=== PATIENT | female | born 1980 | race American Indian/Alaskan Native ===

== ENCOUNTER 2016-06-23 08:25 | Emergency (ER) | payer SELFPAY ==
[2016-06-23 09:19] VITALS: BP 129/89
--- NOTE | 2016-06-23 10:00 | XRay Report ---
RIGHT ANKLE RADIOGRAPHS INDICATION: Right ankle injury, pain, swelling. COMPARISON: None similar. FINDINGS: AP, lateral and oblique right ankle radiographs demonstrate an oblique nondisplaced distal fibular shaft fracture, approximately 6 cm proximal to the lateral malleolus. Overlying soft tissue swelling noted extending to the ankle and foot, lateral more than medial. Intact ankle mortise, malleoli and talar dome contour. However, calcaneus appears heterogeneous with vague lucencies and suspected cortical interruptions superiorly and distally. Subtalar joints also not adequately assessed. CONCLUSION: 1. Nondisplaced distal fibular shaft fracture noted. 2. Heterogeneous calcaneus, suspected fractured. Moderate soft tissue swelling about the ankle also noted. Please also correlate clinically and further with CT, as warranted. Thank you for the opportunity to participate in this patient's care.
[2016-06-23] MEDS ORDERED: NORCO 7.5/325 PO ONE (11:58)
--- NOTE | 2016-06-23 12:15 | Emergency Department Report ---
ED Fall HPI - General Chief Complaint: Extremity Injury, Lower Stated Complaint: RT ANKLE SWOLLEN Time Seen by Provider: 06/23/16 11:39 Source: patient Mode of arrival: Wheelchair - History of Present Illness Initial Comments: pt c/o falling down 2 flights of stairs apprx 3 weeks ago and has severe rt foot and ankle pain ever since. pt denies any other injury , denies back pain, saddle paresthesia, bowel or bladder irregularities . Does states that she has been trying to walk for that on foot for the past 3 weeks. MD Complaint: fall -: week(s) (3) Fall From: down stairs (#) (20) Place Fall Occurred: home Loss of Consciousness: none Prolonged Down Time?: yes Symptoms Prior to Fall: none Location - Extremities: Right: Ankle, Foot Severity scale (0 -10): 9 Quality: aching Context: tripped/slipped Associated Symptoms: denies - Related Data Previous Rx's Medication Instructions Recorded Last Taken Type Oxycodone HCl/Acetaminophen 1 each PO Q6HR PRN #15 tablet 06/23/16 Unknown Rx [Percocet 7.5/325 mg] Sulfamethoxazole/Trimethoprim 1 each PO BID #20 tablet 06/23/16 Unknown Rx [Bactrim DS TAB] Allergies Allergy/AdvReac Type Severity Reaction Status Date / Time No Known Allergies Allergy Verified 06/23/16 09:20 ED Review of Systems ROS: Stated complaint: RT ANKLE SWOLLEN Other details as noted in HPI Constitutional: denies: chills, fever Eyes: denies: eye pain, eye discharge, vision change ENT: denies: ear pain, throat pain Respiratory: denies: cough, shortness of breath, wheezing Cardiovascular: denies: chest pain, palpitations, dyspnea on exertion, orthopnea , edema, syncope Endocrine: no symptoms reported Gastrointestinal: denies: abdominal pain, nausea, diarrhea Genitourinary: other (denies ). denies: urgency, dysuria, discharge Musculoskeletal: joint swelling, arthralgia. denies: back pain Skin: denies: rash, lesions Neurological: denies: headache, weakness, paresthesias Other: pt also making coincidental c/o recurrent abscesses to rt axilla. pt states álvaro she has 1 now that started spontaneously draining today. ED Past Medical Hx - Past Medical History Previous Medical History?: No - Surgical History Past Surgical History?: No - Social History Smoking Status: Current Every Day Smoker Substance Use Type: Alcohol - Medications Home Medications: Home Medications Medication Instructions Recorded Confirmed Last Taken Type Oxycodone HCl/Acetaminophen 1 each PO Q6HR PRN #15 tablet 06/23/16 Unknown Rx [Percocet 7.5/325 mg] Sulfamethoxazole/Trimethoprim 1 each PO BID #20 tablet 06/23/16 Unknown Rx [Bactrim DS TAB] ED Physical Exam - General Limitations: Physical Limitation General appearance: alert, in no apparent distress - Head Head exam: Present: atraumatic, normocephalic - Eye Eye exam: Present: normal appearance, PERRL, EOMI - ENT ENT exam: Present: normal exam - Neck Neck exam: Present: normal inspection, full ROM. Absent: tenderness - Respiratory Respiratory exam: Absent: respiratory distress - Cardiovascular Cardiovascular Exam: Present: regular rate - Expanded Lower Extremity Exam Right Ankle exam: Present: tenderness, swelling. Absent: full ROM Foot/Toe exam: Present: tenderness, swelling. Absent: full ROM Neuro vascular tendon exam: Present: no vascular compromise, significant pain with passive ROM of distal joint. Absent: pulse deficit, abnormal cap refill Gait: Positive: unable to bear weight - Back Exam Back exam: Present: normal inspection, full ROM. Absent: tenderness, CVA tenderness (R), CVA tenderness (L), vertebral tenderness - Neurological Exam Neurological exam: Present: alert, oriented X3, CN II-XII intact - Psychiatric Psychiatric exam: Present: normal affect - Skin Skin exam: Present: warm, dry, erythema (rt axilla with draining hidradenitis suppurativa) ED Course Vital Signs 06/23/16 06/23/16 06/23/16 09:16 12:19 13:05 Temperature 97.8 F Pulse Rate 86 Respiratory 20 20 22 Rate Blood Pressure 129/89 O2 Sat by Pulse 100 Oximetry - Reevaluation(s) Reevaluation #1: 06/23/16 12:45 Discussed case with was advised he would see patient in his office and the week advised the patient isn't well padded posterior OCL with crutches and no weightbearing until follow-up. - Orthopedic Splinting/Casting Injury #1 Side: right Lower Extremity Injury Location: lower leg, ankle, foot Lower Extremity Immobilizer: posterior splint, stirrup splint Other Orthopedic Equipment: crutches Additional Comments: good cap refill and 2 point discrimination post splinting .pt tolerated well. Critical care attestation.: If time is entered above; I have spent that time in minutes in the direct care of this critically ill patient, excluding procedure time. ED Disposition Clinical Impression: Right calcaneal fracture, Right fibular fracture, Hidradenitis axillaris Disposition: DISCHARGED TO HOME OR SELFCARE Is pt being admited?: No Condition: Good Instructions: Foot Fracture in Adults (ED) Prescriptions: Oxycodone HCl/Acetaminophen [Percocet 7.5/325 mg] 1 each PO Q6HR PRN #15 tablet PRN Reason: Pain Sulfamethoxazole/Trimethoprim [Bactrim DS TAB] 1 each PO BID #20 tablet Referrals: PRIMARY CAREMD [Primary Care Provider] - 3-5 Days RAPHAEL PRETTY MD [Staff Physician] - 3-5 Days
[2016-06-23] MEDS ORDERED: MORPHINE IM ONE (12:47)
== END 2016-06-23 13:38 | disposition home or self-care (01) ==
LOC: ED 08:25
DX: S82.831A Other fracture of upper and lower end of right fibula, initial encounter for closed fracture (principal); S92.001A Unspecified fracture of right calcaneus, initial encounter for closed fracture; F17.200 Nicotine dependence, unspecified, uncomplicated; W10.8XXA Fall (on) (from) other stairs and steps, initial encounter; Y93.89 Activity, other specified; Y99.8 Other external cause status; Y92.098 Other place in other non-institutional residence as the place of occurrence of the external cause
CPT/HCPCS: 29515; 73610; 96372; 99284; J2270

== ENCOUNTER 2019-12-16 23:13 | Emergency (ER) | payer MEDICAID ==
[2019-12-16 23:31] VITALS: BP 110/78
[2019-12-17] MEDS ORDERED: HYDROcodone/ACETAMINOPHEN 5-325 MG TAB PO ONE (00:29)
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
--- NOTE | 2019-12-17 01:22 | XRay Report ---
LEFT WRIST 4 VIEW INDICATION / CLINICAL INFORMATION: medial pain, swelling, numbness. COMPARISON: None available. FINDINGS: BONES/JOINT(S): No acute fracture or subluxation. No significant degenerative changes. SOFT TISSUES: No significant abnormality. ADDITIONAL FINDINGS: None. Signer Name: Bj Parada MD Signed: 12/17/2019 1:18 AM Workstation Name: [email or web address]
== END 2019-12-17 02:45 | disposition home or self-care (01) ==
LOC: ED 23:13
DX: M25.532 Pain in left wrist (principal); R20.2 Paresthesia of skin; M25.542 Pain in joints of left hand; F17.200 Nicotine dependence, unspecified, uncomplicated; Z79.899 Other long term (current) drug therapy

== ENCOUNTER 2019-12-19 22:15 | Emergency (ER) | payer MEDICAID ==
[2019-12-20 02:25] VITALS: BP 122/89
[2019-12-20] MEDS ORDERED: IBUPROFEN 800 MG TAB PO ONE (03:02)
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
== END 2019-12-20 03:09 | disposition home or self-care (01) ==
LOC: ED 22:15
DX: S50.12XA Contusion of left forearm, initial encounter (principal); G62.89 Other specified polyneuropathies; F17.200 Nicotine dependence, unspecified, uncomplicated; Z79.899 Other long term (current) drug therapy; X58.XXXA Exposure to other specified factors, initial encounter; Y93.89 Activity, other specified; Y92.89 Other specified places as the place of occurrence of the external cause; Y99.8 Other external cause status
CPT/HCPCS: 99282

== ENCOUNTER 2020-06-06 18:48 | Emergency (ER) | payer MEDICAID ==
[2020-06-06] MEDS ORDERED: ACETAMINOPHEN 500 MG TAB PO ONE ×2 (19:42→22:05)
[2020-06-06 19:47] VITALS: BP 148/106
[2020-06-06 20:06] LABS: Hematocrit 31.7 % (30.3-42.9); Hemoglobin 9.8 gm/dl (10.1-14.3); Mean Corpuscular Volume 63 fl (79-97); Red Blood Count 5.02 M/mm3 (3.65-5.03)
[2020-06-06 20:08] LABS: Eosinophils % (Auto) 0.6 % (0.0-4.3); Lymphocytes % (Auto) 17.8 % (13.4-35.0); Mean Corpuscular HGB Conc 31 % (30-34); Platelet Count 402 K/mm3 (140-440); Red Cell Distribution Width 22.2 % (13.2-15.2)
[2020-06-06 20:09] LABS: Basophils # (Auto) 0.2 K/mm3 (0.0-0.1); Basophils % (Auto) 1.9 % (0.0-1.8); Eosinophils # (Auto) 0.1 K/mm3 (0.0-0.4); Lymphocytes # (Auto) 1.5 K/mm3 (1.2-5.4); Monocytes # (Auto) 0.5 K/mm3 (0.0-0.8)
[2020-06-06 20:12] LABS: Bilirubin,Urine NEG (Negative); Blood,Urine LG (Negative); Color,Urine Yellow (Yellow); Mucus,Urine FEW /HPF; Urobilinogen,Urine < 2.0 mg/dL (<2.0)
[2020-06-06 20:13] LABS: RBC,Urine > 182.0 /HPF (0.0-6.0)
[2020-06-06 20:22] LABS: Alanine Aminotransferase 11 units/L (7-56); Albumin 4.7 g/dL (3.9-5); Blood Urea Nitrogen 8 mg/dL (7-17); Calcium 9.3 mg/dL (8.4-10.2); Hemolysis Index 1
[2020-06-06 20:24] LABS: BUN/Creatinine Ratio 11
--- NOTE | 2020-06-07 00:45 | Emergency Department Report ---
ED Female HPI - General Chief complaint: Vaginal Bleeding Stated complaint: ABD PAIN Source: patient Mode of arrival: Ambulatory Limitations: No Limitations - History of Present Illness Initial comments: Patient is a A0 39-year-old -[place] female with no past medical history who presents to the ED with complaint of acute onset persistent severe pelvic pain with vaginal bleeding for the last 2 days. Patient states that she is 9 weeks late in her menstrual cycle and was wondering whether she may be . Patient states that she did not take any test at home prior to arrival in the ED. Patient states that her pelvic pain radiates to the lower back and got worse in the last 8 hours. Patient states that she did not take any medications for pain prior to arrival in the ED. Patient denies fever, chills, nausea, vomiting, diarrhea, dizziness, syncope, dysuria, urinary frequency and urgency, cough, sore throat, chest pain or shortness of breath. MD Complaint: vaginal bleeding, pelvic pain, other (missed menstrual cycle 9 days ago, now has vaginal bleeding with pelvic pain) -: Sudden, days(s) (2) Location: suprapubic Radiation: other (lower back) Severity: severe Severity scale (0 -10): 7 Quality: cramping, sharp, aching Consistency: constant Improves with: none Worsens with: movement Last Menstrual Period: 05/01/20 EDC: 02/05/21 Associated Symptoms: denies other symptoms, vaginal bleeding, abdominal pain ( suprapubic), hematuria, other (low back pain). denies: vaginal discharge, nausea/vomiting, fever/chills, headaches, loss of appetite, rash, seizure, shortness of breath, syncope, weakness - Related Data Sexually active: Yes : 5 Para: 5 A: 0 Previous Rx's Medication Instructions Recorded Last Taken Type Oxycodone HCl/Acetaminophen 1 each PO Q6HR PRN #15 tablet 06/23/16 Unknown Rx [Percocet 7.5/325 mg] Sulfamethoxazole/Trimethoprim 1 each PO BID #20 tablet 06/23/16 Unknown Rx [Bactrim DS TAB] Diclofenac Sodium 50 mg PO TID PRN #21 tablet 12/17/19 Unknown Rx Ibuprofen [Motrin 400 MG tab] 400 mg PO TID 5 Days #15 tablet 12/20/19 Unknown Rx Allergies Allergy/AdvReac Type Severity Reaction Status Date / Time No Known Allergies Allergy Verified 06/23/16 09:20 ED Review of Systems ROS: Stated complaint: ABD PAIN Other details as noted in HPI Constitutional: denies: chills, fever Eyes: denies: eye pain, eye discharge, vision change ENT: denies: ear pain, throat pain Respiratory: denies: cough, shortness of breath, wheezing Cardiovascular: denies: chest pain, palpitations Endocrine: no symptoms reported Gastrointestinal: abdominal pain (pelvic pain). denies: nausea, diarrhea Genitourinary: hematuria, abnormal menses (vaginal bleeding). denies: urgency, dysuria, discharge Musculoskeletal: back pain (low back pain). denies: joint swelling, arthralgia Skin: denies: rash, lesions, change in color, change in hair/nails, pruritus Neurological: denies: headache, weakness, paresthesias Psychiatric: denies: anxiety, depression Hematological/Lymphatic: denies: easy bleeding, easy bruising ED Past Medical Hx - Past Medical History Previous Medical History?: No - Social History Smoking Status: Current Every Day Smoker - Medications Home Medications: Home Medications Medication Instructions Recorded Confirmed Last Taken Type Oxycodone HCl/Acetaminophen 1 each PO Q6HR PRN #15 tablet 06/23/16 Unknown Rx [Percocet 7.5/325 mg] Sulfamethoxazole/Trimethoprim 1 each PO BID #20 tablet 06/23/16 Unknown Rx [Bactrim DS TAB] Diclofenac Sodium 50 mg PO TID PRN #21 tablet. 12/17/19 Unknown Rx Ibuprofen [Motrin 400 MG tab] 400 mg PO TID 5 Days #15 tablet 12/20/19 Unknown Rx ED Physical Exam - General Limitations: No Limitations General appearance: alert, in no apparent distress - Head Head exam: Present: atraumatic, normocephalic, normal inspection - Eye Eye exam: Present: normal appearance, PERRL, EOMI Pupils: Present: normal accommodation - ENT ENT exam: Present: normal exam, normal orophraynx, mucous membranes moist, TM's normal bilaterally, normal external ear exam - Neck Neck exam: Present: normal inspection, full ROM - Respiratory Respiratory exam: Present: normal lung sounds bilaterally. Absent: respiratory distress, wheezes, rales, stridor, chest wall tenderness, accessory muscle use, decreased breath sounds, prolonged expiratory - Cardiovascular Cardiovascular Exam: Present: regular rate, normal rhythm, normal heart sounds. Absent: systolic murmur, diastolic murmur, rubs, gallop - GI/Abdominal GI/Abdominal exam: Present: soft, tenderness (Palpable suprapubic tenderness with mobile pelvic mass), normal bowel sounds. Absent: guarding, rebound, hyperactive bowel sounds, hypoactive bowel sounds, organomegaly, mass, bruit - Bi-manual exam: Present: other (Pelvic exam deferred, patient declined and eloped) - Extremities Exam Extremities exam: Present: normal inspection, full ROM, normal capillary refill - Back Exam Back exam: Present: normal inspection, full ROM, tenderness (Palpable lumbos acral paraspinal musculoskeletal tenderness), paraspinal tenderness. Absent: muscle spasm, vertebral tenderness - Neurological Exam Neurological exam: Present: alert, oriented X3, CN II-XII intact, normal gait, reflexes normal - Psychiatric Psychiatric exam: Present: normal affect, normal mood - Skin Skin exam: Present: warm, dry, intact, normal color. Absent: rash ED Course Vital Signs 06/06/20 19:45 Temperature 98.0 F Pulse Rate 99 H Respiratory 18 Rate Blood Pressure 148/106 O2 Sat by Pulse 98 Oximetry ED Medical Decision Making - Lab Data Result diagrams: 06/06/20 19:47 06/06/20 19:47 - Medical Decision Making This is a A0 39-year-old -[place] female with no past medical history who presents to the ED with complaint of acute onset persistent severe pelvic pain with vaginal bleeding for the last 2 days. Patient states that she is 9 weeks late in her menstrual cycle and was wondering whether she may be . Patient states that she did not take any test at home prior to arrival in the ED. Patient states that her pelvic pain radiates to the lower back and got worse in the last 8 hours. Patient states that she did not take any medications for pain prior to arrival in the ED. in the ED, patient is alert and oriented x3 and is not in any distress. Lab test results were reviewed and are all nonactionable with a negative hCG test. Urinalysis showed significant blood in the urine consistent of her menstrual cycle. Based on the patient's clinical findings, as well as lab test results, patient symptoms are likely due to dysmenorrhea or uterine fibroids. Patient was treated for pain in the ED and on reevaluation, patient's pain is well controlled medications. Patient eloped from the ED prior to the pelvic ultrasound being performed after her pain was well controlled. At the time of the patient's elopement she was stable hemodynamically. - Differential Diagnosis Ovarian cyst; Dysmenorrhea; UTI; Ectopic preg; fibroids; kidney stones Critical care attestation.: If time is entered above; I have spent that time in minutes in the direct care of this critically ill patient, excluding procedure time. ED Disposition Clinical Impression: Secondary dysmenorrhea, Dysfunctional uterine bleeding Uterine fibroid Qualifiers: Uterine leiomyoma location: unspecified location Qualified Code(s): D25.9 - Leiomyoma of uterus, unspecified Disposition: TO HOME OR SELFCARE Is pt being admited?: No Does the pt Need Aspirin: No Condition: Stable Additional Instructions: All lab test results were reviewed and are all nonactionable. Your symptoms are likely due to dysmenorrhea or suspected uterine fibroids. Therefore take medication with food, drink plenty of fluids and follow-up with your primary care physician in 5 to 7 days for reevaluation. Return to the ED immediately if symptoms get worse. Referrals: KAYLA VILLASENOR MD [Primary Care Provider] - 3-5 Days Time of Disposition: 23:25 Print Language: GREEK
== END 2020-06-07 00:15 | disposition left against medical advice (07) ==
LOC: ED 18:48
DX: N94.6 Dysmenorrhea, unspecified (principal); N93.8 Other specified abnormal uterine and vaginal bleeding; D25.9 Leiomyoma of uterus, unspecified; F17.200 Nicotine dependence, unspecified, uncomplicated; Z79.899 Other long term (current) drug therapy
CPT/HCPCS: 36415; 80053; 81001; 83690; 84703; 85025; 99283